=== PATIENT | female | born 1940 | race Caucasian/White ===

== ENCOUNTER 2017-11-19 07:26 | Day surgery (SDC) | payer MEDICARE, OTHER ==
[~2017-11-19] VITALS: Ht 157.5 cm; Wt 74.8 kg
--- NOTE | ~2017-11-19 | OR ---
[facility] [address], [place] [address] Draft DATE OF OPERATION: 11/19/2017 SURGEON: Otilia Hernandez MD PREOPERATIVE DIAGNOSIS: History of tubular adenoma in 2012. POSTOPERATIVE DIAGNOSIS: Flat probable adenomatous polyp of rectosigmoid and sessile polyp of proximal ascending colon. PROCEDURE: Total colonoscopy to cecum with cold snare polypectomy x1 and cold morcellation polypectomy x1. ANESTHESIA: Intravenous sedation with fentanyl 100 mcg and Versed 4 mg. INDICATIONS: This 77-year-old white woman is a patient of Tammi Chadwick and well known to me from the past. In 2012, she had a tubular adenoma noted on colonoscopy. She is symptom free currently. She is admitted to undergo colonoscopy understanding the risks of bleeding, infection, and perforation. FINDINGS: The prep was good. Complete colonoscopy was undertaken to the cecum without question. There were 2 polyps; one a sessile and almost 1 cm polyp in the proximal ascending colon and a smaller flat probable adenomatous polyp of the rectosigmoid. Both were excised completely. DESCRIPTION OF PROCEDURE: The patient was brought to the endoscopy suite and placed in lateral decubitus position, given intravenous sedation to the point of slurred speech and nystagmus. Digital rectal examination was normal. An Olympus video colonoscope was passed in the rectum and manipulated throughout the colon. Ultimately intubating the cecum itself, the ileocecal valve and appendiceal orifice were normal. The scope was withdrawn and in the proximal ascending colon, was a sessile polyp. Narrow-band imaging confirmed likely to be adenomatous. This was excised with cold morcellation technique. The scope was withdrawn from that point. PATIENT NAME: MARIBELL MILLAN OPERATIVE REPORT DATE OF : 40 REPORT #: [id number] PHYSICIAN: OTILIA HERNANDEZ MD PCP: TAMMI CHADWICK REPORT IS CONFIDENTIAL AND NOT TO BE RELEASED WITHOUT AUTHORIZATION [facility] [address] [place] [id number] Draft Examination was undertaken showing no sign of abnormality into the rectosigmoid where a flat polyp, also adenomatous in appearance based on narrow-band imaging was noted. This was excised with cold morcellation technique. Retroflexed view of the rectum was normal. Scope was removed. The patient was taken to recovery room in good condition. CONCLUDING DIAGNOSIS: Polyps x2. PLAN: Recommend repeat colonoscopy in 5 years if clinically appropriate at her age of 82 at that time. MD SHAGUFTA Edmond/YASSINEL /[id number] cc: GREGORY Meneses Copies: TAMMI CHADWICK ~ PATIENT NAME: MARIBELL MILLAN OPERATIVE REPORT DATE OF : 40 REPORT #: [id number] PHYSICIAN: OTILIA HERNANDEZ MD PCP: TAMMI CHADWICK REPORT IS CONFIDENTIAL AND NOT TO BE RELEASED WITHOUT AUTHORIZATION
[~2017-11-19 07:26] MED LIST: PRAVACHOL20 MG PO
--- NOTE | 2017-11-19 09:07 | NUR ---
[facility]19[facility]17 [facility] PACU SLEEPY WITH NO C/O'S. ABD SOFT. 0905 PASSING FLATUS AND VISITING WITH STAFF. OXYGEN TURNED OFF. SATS 98% ON RA.
--- NOTE | 2017-11-19 11:16 | NUR ---
PT SEEMED ALERT, ORIENTED AND SUPPORTED BY HER . NEITHER PT NOR HAD ANY QUESTIONS, STAFF IN FOR PT. EXTENDED A BLESSING, WILL FOLLOW NEEDED
== END 2017-11-19 09:35 | disposition home or self-care (01) ==
LOC: DS 07:26 → OPS 07:26 → DS 08:30 → OPS 08:30
PROVIDERS: Surgery
PROC: 0DBN8ZZ Excision of Sigmoid Colon, Via Natural or Artificial Opening Endoscopic (ICD-10-PCS; 2017-11-19)
PROC: 0DBK8ZZ Excision of Ascending Colon, Via Natural or Artificial Opening Endoscopic (ICD-10-PCS; principal; 2017-11-19 08:30)
DX: Z12.11 Encounter for screening for malignant neoplasm of colon (principal); D12.2 Benign neoplasm of ascending colon; D12.7 Benign neoplasm of rectosigmoid junction; E78.5 Hyperlipidemia, unspecified; K59.00 Constipation, unspecified; Z86.010 Personal history of colon polyps; Z98.890 Other specified postprocedural states
CPT/HCPCS: 99153; G0500; J2250; J3010

== ENCOUNTER 2023-01-16 12:33 | Day surgery (SDC) | payer MEDICARE, OTHER ==
[~2023-01-16] VITALS: Ht 157.5 cm; Wt 71.0 kg
[2023-01-16 13:16] VITALS: BP 139/64
--- NOTE | 2023-01-16 16:08 | NUR ---
01/16/23 1608 Corin Torres 1556- PT ARRIVES TO UNIT VIA STRETCHER FROM OR. PT RESTING W/EYES CLOSED AT THIS TIME. PT ON 3L VIA NC OF O2, <90% VIA PULSE OX. RESPIRATIONS EVEN AND UNLABORED, NO SIGNS OF DISTRESS. BRIAN RN AND XENA RN AT BEDSIDE FOR REPORT. PT APPEARS COMFORTABLE AT THIS TIME. 1600- PT RESPONSIVE TO VERBAL STIMULI AT THIS TIME. PT REPORTS NO PAIN OR NAUSEA. PT CONTINUES TO REST ON LFT SIDE. RESPIRATIONS EVEN AND UNLABORED W/O2 >90% VIA PULSE OX. 1602- DAVID MOSS AT BEDSIDE TO DISCUSS PROCEDURE AND FINDINGS W/PT. PT STATES VERBAL UNDERSTANDING AND ALL QUESTIONS ANSWERED AT THIS TIME. PT EYES BACK CLOSED AND CONTINUES TO REST. RESPIRATIONS EVEN AND UNLABORED.
[2023-01-16 17:19] VITALS: BP 123/80
--- NOTE | 2023-01-18 14:11 | OR ---
[facility] [address], [place] [address] Signed DATE OF OPERATION: 01/16/2023 SURGEON: Otilia Hernandez MD PREOPERATIVE DIAGNOSIS: History of tubular adenoma x2, 2018. POSTOPERATIVE DIAGNOSIS: Dense diverticular changes in sigmoid, otherwise normal. PROCEDURE: Total colonoscopy to cecum. ANESTHESIA: Intravenous sedation, fentanyl 175 mcg and Versed 6 mg. INDICATION: This 82-year-old white woman is a patient of GREGORY Meneses. She underwent colonoscopy only in 2018, at which time she had tubular adenomas excised. She has no symptoms of bleeding, diarrhea, or constipation, generally though has had constipation from time to time. She has no family history of colon cancer. She is admitted at this time to undergo surveillance colonoscopy, understand the risk of bleeding, infection, and perforation. FINDINGS: The prep was quite good. Complete colonoscopy was undertaken to the cecum without question. She had numerous diverticula of the sigmoid and left colon, which made passage to the area challenging, but it was accomplished ultimately. There was no evidence of recurrent or new polyps. No sign of colitis. DESCRIPTION OF PROCEDURE: The patient was brought to the endoscopy suite and placed in lateral decubitus position, given intravenous sedation to the point of slurred speech and nystagmus. Digital rectal examination was normal. An Olympus video colonoscope was passed in the rectum and manipulated throughout the colon. Passage to the sigmoid was especially challenging on the basis of dense diverticular changes. All due care was taken to negotiate the sigmoid safely. Ultimately, the scope was passed beyond this and relatively easily thereafter to the cecum. The ileocecal valve and appendiceal orifice were normal. The scope was then Electronically Signed By: OTILIA HERNANDEZ MD 01/18/23 1411 PATIENT NAME: MARIBELL MILLAN OPERATIVE REPORT DATE OF : 40 REPORT #: [id number] PHYSICIAN: OTILIA HERNANDEZ MD PCP: TAMMI MARTINEZ REPORT IS CONFIDENTIAL AND NOT TO BE RELEASED WITHOUT AUTHORIZATION [address] [address] Signed withdrawn and examination throughout showed no sign of polyps or colitis. Diverticular changes were once again noted in the sigmoid and left colon. Retroflexed view of the rectum was normal. Scope was removed. The patient was taken to the recovery room in good condition. CONCLUSION DIAGNOSIS: Diverticular changes of sigmoid and left colon, otherwise normal. PLAN: Recommend repeat colonoscopy in 7-10 years, if clinically appropriate at an advanced age of 89-92 years. MD SHAGUFTA Edmond/NANCY /[id number] cc: GREGORY Meneses Copies: TAMMI MARTINEZ ~ Electronically Signed By: OTILIA HERNANDEZ MD 01/18/23 1411 PATIENT NAME: MARIBELL MILLAN OPERATIVE REPORT DATE OF : 40 REPORT #: [id number] PHYSICIAN: OTILIA HERNANDEZ MD PCP: TAMMI MARTINEZ REPORT IS CONFIDENTIAL AND NOT TO BE RELEASED WITHOUT AUTHORIZATION
== END 2023-01-16 16:55 | disposition home or self-care (01) ==
LOC: DS 12:33 → OPS 12:33 → DS 12:42 → OPS 13:00
PROVIDERS: ATTEND Surgery
PROC: 0DJD8ZZ Inspection of Lower Intestinal Tract, Via Natural or Artificial Opening Endoscopic (ICD-10-PCS; principal; 2023-01-16 12:30)
DX: Z12.11 Encounter for screening for malignant neoplasm of colon (principal); K57.30 Diverticulosis of large intestine without perforation or abscess without bleeding; Z86.010 Personal history of colon polyps; Z90.711 Acquired absence of uterus with remaining cervical stump; E78.5 Hyperlipidemia, unspecified
CPT/HCPCS: 99153; G0500; J2250; J3010; J7121